=== PATIENT | male | born 1985 | race Caucasian/White ===

== ENCOUNTER → 2024-05-01 10:05 | Outpatient (REF) | payer OTHER, SELFPAY | LOC: RAD 10:05 | PROVIDERS: ATTENDING PHYSICIAN Chiropractor; FAMILY PHYSICIAN Nurse Practitioner Family | DX: S23.3XXA Sprain of ligaments of thoracic spine, initial encounter (principal); S23.41XA Sprain of ribs, initial encounter; M54.50 Low back pain, unspecified; S13.4XXA Sprain of ligaments of cervical spine, initial encounter; M54.2 Cervicalgia; G44.86 Cervicogenic headache; S33.5XXA Sprain of ligaments of lumbar spine, initial encounter; M54.59 Other low back pain; M25.312 Other instability, left shoulder; M25.311 Other instability, right shoulder; M99.04 Segmental and somatic dysfunction of sacral region; M99.05 Segmental and somatic dysfunction of pelvic region; M25.60 Stiffness of unspecified joint, not elsewhere classified; M62.838 Other muscle spasm | CPT/HCPCS: 72050; 72070; 72110; 72170 ==

== ENCOUNTER → 2024-09-22 13:19 | Outpatient (REF) | payer OTHER, SELFPAY | LOC: PAVMRI 13:19 | PROVIDERS: ATTENDING PHYSICIAN Chiropractor | DX: S23.3XXA Sprain of ligaments of thoracic spine, initial encounter (principal); S23.41XA Sprain of ribs, initial encounter; S13.4XXA Sprain of ligaments of cervical spine, initial encounter; M54.2 Cervicalgia; G44.86 Cervicogenic headache; S33.5XXA Sprain of ligaments of lumbar spine, initial encounter; M54.50 Low back pain, unspecified; M25.312 Other instability, left shoulder; M25.311 Other instability, right shoulder; M99.04 Segmental and somatic dysfunction of sacral region; M99.05 Segmental and somatic dysfunction of pelvic region; M25.60 Stiffness of unspecified joint, not elsewhere classified; M62.838 Other muscle spasm | CPT/HCPCS: 72141; 72146 ==